=== PATIENT | male | born 1995 | race Caucasian/White ===

== ENCOUNTER 2019-01-05 11:28 | Emergency (ER) | payer OTHER, SELFPAY ==
--- NOTE | 2019-01-05 12:17 | ER ---
Nurse's Notes [facility] Name: Wilber Mehta Age: 23 yrs Sex: Male : 1995 Arrival Date: 01/05/2019 Time: 11:32 Bed 8 Private MD: Diagnosis: Esophageal foreign body (pill), uncomplicated Presentation: 01/05 11:36 Presenting complaint: Patient states: "I took an Yadira D pill about 30 minutes ago aa5 and it's still stuck in my throat". Voice is clear and airway is clear. 11:36 Transition of care: patient was not received from another setting of care. Onset of aa5 symptoms was January 05, 2019. Risk Assessment: Do you want to hurt yourself or someone else? Patient reports no desire to harm self or others. Initial Sepsis Screen: Does the patient meet any 2 criteria? No. Patient's initial sepsis screen is negative. Does the patient have a suspected source of infection? No. Patient's initial sepsis screen is negative. Care prior to arrival: None. 11:36 Acuity: ELAINA 3 aa5 11:36 Method Of Arrival: Ambulatory aa5 Historical: - Allergies: 11:48 No Known Allergies; aa5 - PMHx: 11:48 None; aa5 - PSHx: 11:48 None; aa5 - Immunization history:: Adult Immunizations up to date. - Social history:: Smoking status: Patient/guardian denies using tobacco. - Ebola Screening: : No symptoms or risks identified at this time. - Family history:: not pertinent. - Hospitalizations: : No recent hospitalization is reported. Screenin:49 Abuse screen: Denies threats or abuse. Nutritional screening: No deficits noted. aa5 Tuberculosis screening: No symptoms or risk factors identified. Fall Risk None identified. Assessment: 11:36 General: Appears comfortable, Behavior is calm, cooperative. Pain: Denies pain. Neuro: aa5 Level of Consciousness is awake, alert, obeys commands, Oriented to person, place, time, situation. Cardiovascular: No deficits noted. Respiratory: Airway is patent Respiratory effort is even, unlabored, Respiratory pattern is regular, symmetrical. GI: No signs and/or symptoms were reported involving the gastrointestinal system. : No signs and/or symptoms were reported regarding the genitourinary system. EENT: Pt reports pain only with swallowing, and throat discomfort. Pt states "I feel the pill stuck in my throat" . Derm: Skin is pink, warm \\T\\ dry. Musculoskeletal: Range of motion: intact in all extremities. 11:48 Reassessment: able to tolerate water; states, "i just felt the discomfort but i can hj swallow good". 13:00 Reassessment: Patient is alert, oriented x 3, equal unlabored respirations, skin aa5 warm/dry/pink. Vital Signs: 11:42 BP 137 / 86; Pulse 100; Resp 16 S; Temp 98.8(O); Pulse Ox 96% on R/A; Weight 142.88 kg aa5 (R); Height 5 ft. 0 in. (152.40 cm) (R); Pain 0/10; 12:40 BP 121 / 90; Pulse 98; Resp 16 S; Pulse Ox 96% on R/A; Pain 0/10; aa5 11:42 Body Mass Index 61.52 (142.88 kg, 152.40 cm) aa5 ED Course: 11:32 Patient arrived in ED. mr 11:36 Arm band placed on Patient placed in an exam room, on a stretcher. aa5 11:36 Patient has correct armband on for positive identification. Bed in low position. Call aa5 light in reach. Side rails up X 1. Adult w/ patient. 11:39 Jamari Malave MD is Attending Physician. rn 11:46 Ivelisse Villagran, EMIR is Primary Nurse. aa5 11:48 Triage completed. aa5 13:00 No provider procedures requiring assistance completed. Patient did not have IV access aa5 during this emergency room visit. Administered Medications: 12:27 Drug: Decadron 10 mg Route: IM; Site: right deltoid; hj 12:34 Follow up: Response: No adverse reaction hj 12:27 Drug: GlucaGen 1 mg Route: IM; Site: left deltoid; hj 12:34 Follow up: Response: No adverse reaction hj Outcome: 12:17 Discharge ordered by . rn 13:00 Discharged to home ambulatory, with family. aa5 13:00 Condition: stable 13:00 Discharge instructions given to patient, Instructed on discharge instructions, follow up and referral plans. Demonstrated understanding of instructions, follow-up care. 13:04 Patient left the ED. aa5 Signatures: Gloria Hay Roman, MD MD rn Tyshawn, Ivelisse, RN RN aa5 Quang Segal RN RN hj
--- NOTE | 2019-01-05 12:17 | EDPHYS ---
Physician Documentation [facility] Name: Wilber Mehta Age: 23 yrs Sex: Male : 1995 Arrival Date: 01/05/2019 Time: 11:32 Bed 8 Private MD: ED Physician Jamari Malave HPI: 01/05 11:58 This 23 yrs old Male presents to ER via Ambulatory with complaints of Foreign rn Body In Throat. 11:58 The patient or guardian reports the patient has a suspected foreign body, of the rn throat. The reported likely foreign body is pill. Onset: The symptoms/episode began/occurred 30 minute(s) ago. Current symptoms: foreign body sensation. The patient has experienced similar episodes in the past. REports has chronic issues with swallowing, gets things stuck all the time, today took an kaushik tablet, approx 30 min ago, and still feels it in throat, able to swallow and breathe but still has foreign body sensation. Never been worked up by GI.. Historical: - Allergies: 11:48 No Known Allergies; aa5 - PMHx: 11:48 None; aa5 - PSHx: 11:48 None; aa5 - Immunization history:: Adult Immunizations up to date. - Social history:: Smoking status: Patient/guardian denies using tobacco. - Ebola Screening: : No symptoms or risks identified at this time. - Family history:: not pertinent. - Hospitalizations: : No recent hospitalization is reported. ROS: 11:58 Constitutional: Negative for fever, chills, and weight loss, ENT: + foreign body rn sensation in throat Neck: Negative for injury, pain, and swelling, Cardiovascular: Negative for chest pain Respiratory: Negative for shortness of breath Abdomen/GI: Negative for nausea, vomiting Exam: 11:58 Constitutional: This is a well developed, well nourished patient who is awake, alert, rn and in no acute distress. ENT: MMM, no stridor, no posterior pharyngeal swelling Neck: Trachea midline, no thyromegaly or masses palpated, and no cervical lymphadenopathy. Vital Signs: 11:42 BP 137 / 86; Pulse 100; Resp 16 S; Temp 98.8(O); Pulse Ox 96% on R/A; Weight 142.88 kg aa5 (R); Height 5 ft. 0 in. (152.40 cm) (R); Pain 0/10; 12:40 BP 121 / 90; Pulse 98; Resp 16 S; Pulse Ox 96% on R/A; Pain 0/10; aa5 11:42 Body Mass Index 61.52 (142.88 kg, 152.40 cm) aa5 MDM: 11:39 Patient medically screened. rn 11:58 Data reviewed: vital signs, nurses notes, and as a result, I will discharge patient. rn Counseling: I had a detailed discussion with the patient and/or guardian regarding: the historical points, exam findings, and any diagnostic results supporting the discharge/admit diagnosis, the need for outpatient follow up, to return to the emergency department if symptoms worsen or persist or if there are any questions or concerns that arise at home. Special discussion: I discussed with the patient/guardian in detail that at this point there is no indication for admission to the hospital. It is understood, however, that if the symptoms persist or worsen the patient needs to return immediately for re-evaluation. Based on the history and exam findings, there is no indication for further emergent testing or inpatient evaluation. I discussed with the patient/guardian the need to see the [facility]ow analyst for further evaluation of the symptoms. ED course: Tolerated water in ER, + intermittent cough but no vomiting, will dc home with continuation of water and highly recommended f/u with GI for EGD given chronic swallowing problems, no famhx of neurological problems, patient denies acid reflux. . 12:27 ED course: Pt now states trouble swallowing water, was drinking and ate sausage this rn morning prior to taking pill, will try decadron for swelling and glucagon in case more of a food bolus. . 01/05 11:46 Order name: PO challenge; Complete Time: 11:48 rn Administered Medications: 12:27 Drug: Decadron 10 mg Route: IM; Site: right deltoid; hj 12:34 Follow up: Response: No adverse reaction hj 12:27 Drug: GlucaGen 1 mg Route: IM; Site: left deltoid; hj 12:34 Follow up: Response: No adverse reaction hj Disposition: 01/05/19 12:17 Discharged to Home. Impression: Esophageal foreign body (pill), uncomplicated. - Condition is Stable. - Discharge Instructions: Esophagitis, Swallowed Foreign Body, Adult. - Medication Reconciliation Form, Thank You Letter, Antibiotic Education, Prescription Opioid Use form. - Follow up: Private Physician; When: As needed; Reason: Recheck today's complaints, Re-evaluation by your physician. - Problem is new. - Symptoms have improved. Signatures: Jamari Malave MD MD rn Calderon, Audri, RN RN aa5 Quang Segal RN EMIR hj Corrections: (The following items were deleted from the chart) 13:04 12:17 01/05/2019 12:17 Discharged to Home. Impression: Esophageal foreign body (pill), aa5 uncomplicated. Condition is Stable. Forms are Medication Reconciliation Form, Thank You Letter, Antibiotic Education, Prescription Opioid Use. Follow up: Private Physician; When: As needed; Reason: Recheck today's complaints, Re-evaluation by your physician. Problem is new. Symptoms have improved. rn
[2019-01-05] MEDS ORDERED: GLUCAGON 1 MG/VIAL ONE (12:40)
[2019-01-05] MEDS ORDERED: DEXAMETHASONE 10 MG/ML VIAL ONE (12:40)
== END 2019-01-05 13:04 | disposition home or self-care (01) ==
LOC: ER 11:28
DX: T18.198A Other foreign object in esophagus causing other injury, initial encounter (principal)
CPT/HCPCS: 96372; 99283; J1100; J1610

== ENCOUNTER 2021-11-05 12:17 | Emergency (ER) | payer BC ==
[2021-11-05 13:48] LABS: Barbiturates NEGATIVE (NEGATIVE); Benzodiazepines NEGATIVE (NEGATIVE); Cocaine NEGATIVE (NEGATIVE); METHAMPHETAM NEGATIVE (NEGATIVE); Methadone NEGATIVE (NEGATIVE); Opiates NEGATIVE (NEGATIVE); Phencyclidine NEGATIVE (NEGATIVE); THC Cannibis NEGATIVE (NEGATIVE)
[2021-11-05 13:50] LABS: Hematocrit 44.1 % (39.6-49.0); MPV 8.5 fL (7.6-11.3); RBC Red Blood Cell Count 5.44 M/uL (4.33-5.43)
[2021-11-05 13:57] LABS: Protime INR 1.09
[2021-11-05 14:08] LABS: ALT/SGPT 47 U/L (12-78); AST/SGOT 21 U/L (15-37); Albumin 3.9 g/dL (3.4-5.0); Alkaline Phosphatase 103 U/L (45-117); BUN Blood Urea Nitrogen 16 mg/dL (7-18); Bicarbonate 29 mmol/L (21-32); Bilirubin Direct 0.1 mg/dL (0-0.2); Bilirubin Total 0.5 mg/dL (0.2-1.0); Glucose Level 98 mg/dL (74-106); Potassium 4.3 mmol/L (3.5-5.1); Sodium Level 138 mmol/L (136-145)
[2021-11-05 15:11] LABS: SARS-COV-2 RT PCR NEGATIVE (NEGATIVE)
--- NOTE | 2021-11-05 16:45 | ER ---
Nurse's Notes [facility] Name: Wilber Mehta Age: 26 yrs Sex: Male : 1995 Arrival Date: 11/05/2021 Time: 12:20 Bed 15 Private MD: Diagnosis: Depression;Suicidal ideations Presentation: 11/05 12:52 Chief complaint: Patient states: that he has had "serious suicidal thoughts" for the ap3 last few months. Patient states that he has come close to attempting suicide by way of overdose twice now, but has stopped him self. Patient states that his friends were concerned and wanted him to get checked in for evaluation. Patient states that he is scared to be at home in fear of his safety from himself and his mother. Coronavirus screen: At this time, the client does not indicate any symptoms associated with coronavirus-19. Ebola Screen: No symptoms or risks identified at this time. Initial Sepsis Screen: Does the patient meet any 2 criteria? No. Patient's initial sepsis screen is negative. Does the patient have a suspected source of infection? No. Patient's initial sepsis screen is negative. Risk Assessment: Do you want to hurt yourself or someone else? Patient reports desire/thoughts of hurting themselves or someone else. Provider notified. Onset of symptoms was November 05, 2021. 12:52 Method Of Arrival: Ambulatory ap3 12:52 Acuity: ELAINA 2 ap3 13:01 Chief complaint:. ap3 Triage Assessment: 12:57 General: Appears distressed, Behavior is anxious. Pain: Denies pain. Neuro: Level of ap3 Consciousness is awake, alert, obeys commands, Oriented to person, place, time, situation. Respiratory: Airway is patent Respiratory effort is even, unlabored, Respiratory pattern is regular, symmetrical. Historical: - Allergies: 12:54 No Known Allergies; ap3 - Home Meds: 12:54 omeprazole 40 mg Oral cpDR [Active]; citalopram 10 mg tab [Active]; bupropion HCl 150 ap3 mg Oral Tb24 [Active]; zolpidem 5 mg Oral tab [Active]; - PMHx: 12:55 Depressive disorder; Anxiety; narrow esophagus; ap3 - Immunization history:: Client reports receiving the 2nd dose of the Covid vaccine, Flu vaccine is not up to date. - Social history:: Smoking status: Patient denies any tobacco usage or history of. Patient uses alcohol, only on a social basis. Screenin:57 Abuse screen: Denies threats or abuse. Nutritional screening: No deficits noted. ap3 Tuberculosis screening: No symptoms or risk factors identified. 13:23 Fall Risk None identified. ic1 Assessment: 13:23 General: Appears in no apparent distress. comfortable, Behavior is calm, cooperative, ic1 Reports SI ideation. States he has never made an attempt, but states he looks over at his ambien bottle and thinks about taking them all, but denies a for sure plan. Pt denies HI. Denies any illegal substance use. Pt has family at bedside and sitter at bedside as well. Belongings and clothes removed. Pt placed in hospital gown and provided w socks. Pt belongings placed in bag and removed from pt's reach. Labs drawn, pt swabbed, urine obtained and sent to lab. Pt calm and cooperative. Pain: Denies pain. Neuro: Level of Consciousness is awake, alert, obeys commands, Oriented to person, place, time, situation. Cardiovascular: No deficits noted. Respiratory: No deficits noted. GI: No deficits noted. : No deficits noted. EENT: No deficits noted. Derm: No deficits noted. Musculoskeletal: No deficits noted. 13:42 Reassessment: Pt states his depression is brought on by mom. States she is constantly ic1 condescending and makes negative remarks towards him whenever he gets paid or is making attempts at bettering himself. Pt states dad is supportive, but mom constantly is demeaning. Also pt states SI is brought on due to academics. 15:31 Reassessment: Patient appears in no apparent distress at this time. No changes from ic1 previously documented assessment. Pt has dad at bedside while watching tv. Denies pain or distress at this time. Waiting on psych consult to determine dispo. Pt and family updated on plan of care. Patient states feeling better. 17:56 Reassessment: Pt currently on phone while speaking w screener. In NAD. Calm and ic1 cooperative. 17:57 Reassessment: Pt d/c home with dad after speaking with [facility] screener. Per ic1 screener, pt will be seen on an outpatient basis. Pt denies SI currently. Pt provided w resource information regarding hotline and nursing home if needed. Left amb with dad. Psych: 12:58 [place] Suicide Severity Screening: In the past month, have you wished you were ap3 or wished you could go to sleep and not wake up? Patient responds "yes." "In the past month, have you actually had any thoughts of killing yourself?" Patient responds "yes." "In your lifetime, have you ever done anything, started to do anything, or prepared to do anything to end your life?" Patient responds "yes." a couple of weeks ago. Subjective: Patient's mood is hopeless, Having thoughts of suicide. Plan for suicide is overdose on sleeping pill while in the shower. Objective: Patient is cooperative. 13:40 Interventions: Removed personal items and placed in bag. Patient placed in hospital ic1 gown. Searched person for dangerous items. Urine collected and sent for urine drug test. Belonging list filled out. Safety Checks: Personal items have been removed. Door is open. Visitors are present. Pt denies substance abuse. Commitment: Patient will be a voluntary commitment. Vital Signs: 12:52 BP 143 / 90; Pulse 94; Resp 18; Temp 99.4; Pulse Ox 98% ; Weight 140.61 kg; Height 6 ap3 ft. 2 in. (187.96 cm); 17:55 BP 138 / 75; Pulse 85; Resp 18; Pulse Ox 99% on R/A; ic1 12:52 Body Mass Index 39.80 (140.61 kg, 187.96 cm) ap3 ED Course: 12:20 Patient arrived in ED. ds1 12:54 Jeyson Cordero MD is Attending Physician. kdr 12:54 Triage completed. ap3 12:58 Arm band placed on right wrist. ap3 13:19 Lizabeth Bautista, EMIR is Primary Nurse. ic1 13:23 Patient has correct armband on for positive identification. Placed in gown. SI ic1 precautions in place. 15:15 called and spoke with aT from from the [facility] Crisis line/ She will page out the eb screener distribution lineman. 16:04 connected Ellen from [facility] with the nurse taking care of the patient/ She says eb she will do the screening over the phone not face time. Administered Medications: No medications were administered Outcome: 16:45 Discharge ordered by . kdr 17:55 Discharged to home ambulatory, with family. ic1 17:55 Condition: stable 17:55 Discharge instructions given to patient, family, Instructed on discharge instructions, follow up and referral plans. safety practices, Demonstrated understanding of instructions, follow-up care. 18:13 Patient left the ED. ic1 Signatures: Jeyson Cordero MD MD kdr Rachna Spain ds1 Leonora Cortez RN RN ap3 Thea Brink Iesha, RN RN ic1 Corrections: (The following items were deleted from the chart) 13:02 12:52 Chief complaint: Patient states: that he has had "serious suicidal thoughts" for ap3 the last few months. Patient states that he has come close to attempting suicide by way of overdose twice now, but has stopped him self. Patient states that his friends were concerned and wanted him to get checked in for evaluation ap3 13:42 12:58 [place] Suicide Severity Screening: In the past month, have you wished you were ic1 or wished you could go to sleep and not wake up? Patient responds "yes." "In the past month, have you actually had any thoughts of killing yourself?" Patient responds "yes." "In your lifetime, have you ever done anything, started to do anything, or prepared to do anything to end your life?" Patient responds "yes." a couple of weeks ago ap3
--- NOTE | 2021-11-05 16:45 | EDPHYS ---
Physician Documentation [facility] Name: Wilber Mehta Age: 26 yrs Sex: Male : 1995 Arrival Date: 11/05/2021 Time: 12:20 Bed 15 Private MD: ED Physician Jeyson Cordero HPI: 11/05 15:39 This 26 yrs old Male presents to ER via Ambulatory with complaints of Suicidal Ideation.kdr 15:39 The patient presents to the emergency department with depression, Patient has had kdr relationship issues with his mother primarily as well as some friends. Past psychiatric history: Prior diagnosis: depression, Psychiatric medications include: Primary psychiatric physician: the patient does not have a primary psychiatric physician. Associated signs and symptoms: Pertinent positives; anxiety, depression, Pertinent negatives: abdominal pain, anxiety, chest pain, chills, delusions, fever, hallucinations, headache, palpitations, paranoia, shortness of breath, substance abuse, suicide ideation, tremor. Severity of symptoms: At their worst the symptoms were very mild mild in the emergency department the symptoms are unchanged. The patient has experienced similar episodes in the past, a few times. The patient has not recently seen a physician, Patient has been unhappy with his therapist and is looking for a change. Historical: - Allergies: 12:54 No Known Allergies; ap3 - Home Meds: 12:54 omeprazole 40 mg Oral cpDR [Active]; citalopram 10 mg tab [Active]; bupropion HCl 150 ap3 mg Oral Tb24 [Active]; zolpidem 5 mg Oral tab [Active]; - PMHx: 12:55 Depressive disorder; Anxiety; narrow esophagus; ap3 - Immunization history:: Client reports receiving the 2nd dose of the Covid vaccine, Flu vaccine is not up to date. - Social history:: Smoking status: Patient denies any tobacco usage or history of. Patient uses alcohol, only on a social basis. ROS: 15:39 Constitutional: Negative for fever, chills, and weight loss, Eyes: Negative for injury, kdr pain, redness, and discharge, ENT: Negative for injury, pain, and discharge, Neck: Negative for injury, pain, and swelling, Cardiovascular: Negative for chest pain, palpitations, and edema, Respiratory: Negative for shortness of breath, cough, wheezing, and pleuritic chest pain, Abdomen/GI: Negative for abdominal pain, nausea, vomiting, diarrhea, and constipation, Back: Negative for injury and pain, : Negative for injury, bleeding, discharge, and swelling, MS/Extremity: Negative for injury and deformity, Skin: Negative for injury, rash, and discoloration, Neuro: Negative for headache, weakness, numbness, tingling, and seizure activity. Allergy/Immunology: Negative for hives, rash, and allergies, Endocrine: Negative for neck swelling, polydipsia, polyuria, polyphagia, and marked weight changes, Hematologic/Lymphatic: Negative for swollen nodes, abnormal bleeding, and unusual bruising. 15:39 Psych: Positive for depression. Exam: 15:39 Constitutional: This is a well developed, well nourished patient who is awake, alert, kdr and in no acute distress. Head/Face: Normocephalic, atraumatic. Eyes: Pupils equal round and reactive to light, extra-ocular motions intact. Lids and lashes normal. Conjunctiva and sclera are non-icteric and not injected. Cornea within normal limits. Periorbital areas with no swelling, redness, or edema. Neck: Trachea midline, no thyromegaly or masses palpated, and no cervical lymphadenopathy. Supple, full range of motion without nuchal rigidity, or vertebral point tenderness. No Meningismus. Chest/axilla: Normal chest wall appearance and motion. Nontender with no deformity. No lesions are appreciated. Cardiovascular: Regular rate and rhythm with a normal S1 and S2. No gallops, murmurs, or rubs. Normal PMI, no JVD. No pulse deficits. Respiratory: Lungs have equal breath sounds bilaterally, clear to auscultation and percussion. No rales, rhonchi or wheezes noted. No increased work of breathing, no retractions or nasal flaring. Abdomen/GI: Soft, non-tender, with normal bowel sounds. No distension or tympany. No guarding or rebound. No evidence of tenderness throughout. Back: No spinal tenderness. No costovertebral tenderness. Full range of motion. Skin: Warm, dry with normal turgor. Normal color with no rashes, no lesions, and no evidence of cellulitis. MS/ Extremity: Pulses equal, no cyanosis. Neurovascular intact. Full, normal range of motion. Neuro: Awake and alert, GCS 15, oriented to person, place, time, and situation. Cranial nerves II-XII grossly intact. Motor strength 5/5 in all extremities. Sensory grossly intact. Cerebellar exam normal. Normal gait. 15:39 Psych: Behavior/mood is pleasant, cooperative, depressed. Vital Signs: 12:52 BP 143 / 90; Pulse 94; Resp 18; Temp 99.4; Pulse Ox 98% ; Weight 140.61 kg; Height 6 ap3 ft. 2 in. (187.96 cm); 17:55 BP 138 / 75; Pulse 85; Resp 18; Pulse Ox 99% on R/A; ic1 12:52 Body Mass Index 39.80 (140.61 kg, 187.96 cm) ap3 MDM: 16:45 Patient medically screened. kdr 16:46 Data reviewed: vital signs, nurses notes. Counseling: I had a detailed discussion with kdr the patient and/or guardian regarding: the historical points, exam findings, and any diagnostic results supporting the discharge/admit diagnosis, lab results, the need for outpatient follow up. ED course: [facility] evaluated the patient and opined that outpatient follow-up would be sufficient and made such arrangements with the patient and family/father who is present at the bedside. Patient was stable in the ED. He did not require any intervention or stabilization. The patient and father were happy with the care provided and the plan for discharge and follow-up. 11/05 12:54 Order name: Acetaminophen [facility] 11/05 12:54 Order name: Basic Metabolic Panel [facility] 11/05 12:54 Order name: CBC with Diff [facility] 11/05 12:54 Order name: ETOH Level [facility] 11/05 12:54 Order name: Hepatic Function [facility] 11/05 12:54 Order name: PT-INR [facility] 11/05 12:54 Order name: Ptt, Activated [facility] 11/05 12:54 Order name: Salicylate [facility] 11/05 12:54 Order name: Urine Drug Screen [facility] 11/05 12:54 Order name: IV Saline Lock; Complete Time: 15:16 [facility] 11/05 12:54 Order name: Labs collected and sent; Complete Time: 15:16 [facility] 11/05 12:54 Order name: Suicide Screening ([place]); Complete Time: 15:16 [facility] 11/05 12:55 Order name: COVID-19/FLU A+B (Document "Date of Onset" if Symptomatic) [facility] 11/05 12:56 Order name: COVID-19/FLU A+B [facility] 11/05 12:54 Order name: Urine Dipstick-Ancillary (obtain specimen); Complete Time: 15:16 kdr Administered Medications: No medications were administered Disposition Summary: 11/05/21 16:45 Discharge Ordered Location: Home kdr Problem: an acute exacerbation kdr Symptoms: have improved kdr Condition: Stable kdr Diagnosis - Depression kdr - Suicidal ideations kdr Followup: kdr - With: Private Physician - When: 1 - 2 days - Reason: If symptoms return, Further diagnostic work-up, Recheck today's complaints, Continuance of care, Re-evaluation by your physician Discharge Instructions: - Discharge Summary Sheet kdr - Suicidal Feelings: How to Help Yourself kdr - Helping Someone Who is Suicidal kdr - Supporting Someone With Depression kdr - Managing Depression, Adult kdr Forms: - Medication Reconciliation Form kdr - Thank You Letter kdr Signatures: Dispatcher [employer] EDJeyson Lockett MD MD kdr Leonora Cortez RN RN ap3
[2021-11-05 18:20] VITALS: TEMP 99.4
[2021-11-05 18:22] VITALS: BP 138/75; O2SAT 99
== END 2021-11-05 18:13 | disposition home or self-care (01) ==
LOC: ER 12:17
DX: R45.851 Suicidal ideations (principal); F32.A Depression, unspecified; Z20.822 Contact with and (suspected) exposure to COVID-19
CPT/HCPCS: 85025; 80048; 36415; 80320; 80329 ×2; 85610; 80076; 85730; 0240U; 80307; 99284